=== PATIENT | female | born 1955 | race Two or more races ===

== ENCOUNTER 2019-05-13 04:37 | Inpatient (IN) | payer OTHER ==
[~2019-05-13] VITALS: Ht 160 cm; Wt 103.4 kg
[2019-05-13 06:05] VITALS: BP 171/80
--- NOTE | 2019-05-13 07:30 | NUR ---
RECEIVED PATIENT AWAKE A/O X4. BREATHING UNLABORED AND EVEN ON ROOM AIR, SATURATING ABOVE 95 %. oRIENTED TO THE UNIT, EDUCATED TO USE CALL LIGHT. sKIN CHECKED AND INTACT, PATIENT AMBULATORY. iv LINE INTACT. AWAITING FOR ADM. ORDERS
--- NOTE | 2019-05-13 07:45 | NUR ---
PATIENT CAME FROM [facility] DIRECT ADMIT AT [id number], ACCOMPANIED BY DAUGHTER.PATIENT IS A/O X4. VITALS TAKEN AND RECORDED. AFEBRILE.
[2019-05-13 07:49] VITALS: BP 171/87
[2019-05-13 08:00] VITALS: BP 171/87
[2019-05-13] MEDS ORDERED: NITROGLYCERIN 0.4 MG/TAB BOTTLE SL PRN (08:00)
[2019-05-13] MEDS ORDERED: CEFTRIAXONE 1 G in IV D5W 50 ML IV SCH ×2 (08:00→20:00)
[2019-05-13] MEDS ORDERED: FUROSEMIDE 40 MG/4 ML VIAL IV SCH (09:00)
--- NOTE | 2019-05-13 10:00 | NUR ---
PATIENT DID NOT PROVIDE HOME MEDS LIST. WILL CALL PATIENT'S PREFERRED PHARMACY
[2019-05-13] MEDS: FUROSEMIDE 40 MG/4 ML VIAL IV SCH ×3 (10:01→15:51)
[2019-05-13] MEDS: AZITHROMYCIN 250 MG TABLET PO SCH (10:01)
[2019-05-13] MEDS: ENOXAPARIN SODIUM 40 MG/0.4 ML DISP.SYRIN SQ SCH (10:49)
[2019-05-13 11:58] LABS: BASOPHILS # (AUTO) 0.1 /CMM (0.0-0.2); BASOPHILS % (AUTO) 0.7 % (0.0-2.0); EOSINOPHILS % (AUTO) 1.1 % (0.0-6.0); HEMATOCRIT 31 % (33-45); LYMPHOCYTES # (AUTO) 1.1 /CMM (0.8-4.8); LYMPHOCYTES % (AUTO) 10.4 % (20.0-44.0); MEAN CORPUSCULAR HGB CONC 33 g/dl (31.0-36.0); MEAN CORPUSCULAR VOLUME 91 fL (82-100); MONOCYTES # (AUTO) 0.8 /CMM (0.1-1.30); MONOCYTES % (AUTO) 7.1 % (2.0-12.0); NEUTROPHILS # (AUTO) 8.8 /CMM (1.8-8.9); NEUTROPHILS % (AUTO) 80.7 % (43.0-81.0); PLATELET COUNT (AUTO) 325 /CMM (150-450); RED BLOOD CELL COUNT(AUTO) 3.39 MIL/uL (4.0-5.2); WHITE BLOOD COUNT (AUTO) 10.9 K/uL (4.3-11.0)
[2019-05-13 12:10] LABS: ALBUMIN 2.1 g/dL (3.4-5.0); BILIRUBIN,TOTAL 0.2 mg/dL (0.2-1.0); CALCIUM, SERUM 8.6 mg/dL (8.5-10.1); CREATININE 1.7 mg/dL (0.6-1.3); MAGNESIUM 1.5 mg/dL (1.8-2.4); PHOSPHORUS 4.1 mg/dL (2.5-4.9); POTASSIUM 3.5 mmol/L (3.5-5.1); TOTAL PROTEIN, SERUM 6.2 g/dL (6.4-8.2)
[2019-05-13] MEDS: Magnesium 1GM/D5W 100ML PREMIX 100 ML IV SCH ×3 (15:51→19:11)
[2019-05-13 16:00] VITALS: BP 171/87
--- NOTE | 2019-05-13 16:00 | NUR ---
mrsa SWAB DONE AND SENT TO LAB
[2019-05-13] MEDS: hydrALAZINE HCL IV 20 MG VIAL IV PRN (16:46)
--- NOTE | 2019-05-13 19:14 | NUR ---
pATIENT RESTING IN BED. pATIENT A/O X4 , ON ROOM AIR TOLERATING WELL. iv MAGNESIUM RUNNING ORDERED. PATIENT AMBULATORY AND USING BATHROOM. ALL NEEDS ATTENDED. SAFETY PRECAUTIONS IN PLACE AND PATIENT USING CALL LIGHT. WILL ENDORSE TO NEXT SHIFT FOR MAIK.
[2019-05-13] MEDS ORDERED: METF1000 PO (19:51)
[2019-05-13] MEDS ORDERED: HYDR-4076 PO (19:51)
[2019-05-13] MEDS ORDERED: METO25TA6 PO (19:51)
[2019-05-13] MEDS ORDERED: LOSA100T31 PO (19:51)
[2019-05-13 20:00] VITALS: BP 178/88
[2019-05-13] MEDS ORDERED: CARVEDILOL 3.125 MG TABLET PO SCH (21:00)
[2019-05-13 21:37] LABS: APPEARANCE,URINE CLEAR (CLEAR); BILIRUBIN,URINE NEGATIVE (NEGATIVE); BLOOD, URINE TRACE-INTA Ery/uL (NEGATIVE); COLOR,URINE YELLOW (YELLOW); KETONES,URINE NEGATIVE (NEGATIVE); LEUKOCYTE ESTERASE ,URINE NEGATIVE (NEGATIVE); NITRITE, URINE NEGATIVE (NEGATIVE); PH,URINE 6.5 (5.0-8.0); PROTEIN,URINE >=300 mg/dl (NEGATIVE); UGLUCOSE 250 MG/DL mg/dL (NEGATIVE); UROBILINOGEN,URINE 0.2 EU/dL (0.2)
[2019-05-13 22:08] LABS: BACTERIA,URINE Rare /HPF (None Seen); RBC,URINE 0-2 /HPF (0-2); WBC,URINE 0-2 /HPF (0-3)
[2019-05-13 22:09] LABS: COARSE GRANULAR CASTS,URINE Few /LPF (None Seen); SQUAMOUS EPITHELIAL CELL,UR Few /HPF (None Seen)
[2019-05-13] MEDS ORDERED: IPRATROPIUM NEB FS 0.5 MG/2.5 ML AMPUL.NEB NEB PRN (22:30)
[2019-05-13] MEDS ORDERED: ALBUTEROL FS 2.5 MG/3 ML VIAL.NEB NEB PRN (22:30)
[2019-05-14] VITALS: BP 164/82
[2019-05-14 04:39] VITALS: BP 170/62
[2019-05-14] MEDS: hydrALAZINE HCL IV 20 MG VIAL IV PRN (06:19)
--- NOTE | 2019-05-14 06:39 | NUR ---
CABLE ASSEMBLER AND SWAGER NOTES AWAKE & RESPONSIVE. NOT IN ANY DISTRESS. NO SOB NOTED. DENIES ANY PAIN OR DISCOMFORT AT THIS TIME. ONE TELE SR @ 72 WITH IV-HL PATENT & INTACT. MONITORED ACCORDINGLY. CALL LIGHT WITHIN REACH. BED IN LOWEST POSITION. SR UP X 2 FOR SAFETY. WILL ENDORSE TO NEXT SHIFT.
[2019-05-14 06:44] VITALS: BP 159/83
[2019-05-14 07:22] LABS: BASOPHILS # (AUTO) 0.1 /CMM (0.0-0.2); BASOPHILS % (AUTO) 0.7 % (0.0-2.0); EOSINOPHILS % (AUTO) 2.8 % (0.0-6.0); HEMATOCRIT 29 % (33-45); HEMOGLOBIN 9.4 g/dL (11.5-14.8); LYMPHOCYTES # (AUTO) 1.1 /CMM (0.8-4.8); LYMPHOCYTES % (AUTO) 14.4 % (20.0-44.0); MEAN CORPUSCULAR HGB CONC 33 g/dl (31.0-36.0); MEAN CORPUSCULAR VOLUME 90 fL (82-100); MONOCYTES # (AUTO) 0.8 /CMM (0.1-1.30); MONOCYTES % (AUTO) 10.4 % (2.0-12.0); NEUTROPHILS # (AUTO) 5.5 /CMM (1.8-8.9); NEUTROPHILS % (AUTO) 71.7 % (43.0-81.0); PLATELET COUNT (AUTO) 294 /CMM (150-450); RED BLOOD CELL COUNT(AUTO) 3.19 MIL/uL (4.0-5.2); WHITE BLOOD COUNT (AUTO) 7.6 K/uL (4.3-11.0)
[2019-05-14 07:42] LABS: ALBUMIN 1.9 g/dL (3.4-5.0); BILIRUBIN,TOTAL 0.1 mg/dL (0.2-1.0); CALCIUM, SERUM 8.3 mg/dL (8.5-10.1); CREATININE 2.1 mg/dL (0.6-1.3); MAGNESIUM 2.2 mg/dL (1.8-2.4); PHOSPHORUS 4.9 mg/dL (2.5-4.9); POTASSIUM 3.5 mmol/L (3.5-5.1); TOTAL PROTEIN, SERUM 5.6 g/dL (6.4-8.2)
[2019-05-14 08:00] VITALS: BP 131/54
[2019-05-14] MEDS ORDERED: CARVEDILOL 3.125 MG TABLET PO SCH (09:00)
[2019-05-14] MEDS ORDERED: FUROSEMIDE 40 MG/4 ML VIAL IV SCH (09:00)
[2019-05-14] MEDS ORDERED: NIFEdipine XL (30MG) 30 MG TAB PO SCH (09:00)
[2019-05-14] MEDS: AZITHROMYCIN 250 MG TABLET PO SCH (09:02)
[2019-05-14 09:03] VITALS: BP 131/54
[2019-05-14] MEDS: ENOXAPARIN SODIUM 40 MG/0.4 ML DISP.SYRIN SQ SCH (09:12)
[2019-05-14] MEDS ORDERED: CARV3.122 PO (10:36)
[2019-05-14] MEDS ORDERED: NIFE-35 PO (10:36)
[2019-05-14] MEDS ORDERED: AZIT250T PO (10:36)
--- NOTE | 2019-05-14 12:00 | NUR ---
Patient cleared for d/c by MD. Patient awake alert and oriented x4, breathing unlabored and even on room air. All needs attended. Skin intact. Patient educated on new prescribed med and verbalized understanding. Patient received d/c packet , prescription and instructions. Patient signed D/C instructions and valuable form and all belongings with the patient. IV line removed , ID line removed . Patient safely transferred to [facility] via wheelchair accompanied by CLOTHESPIN DRIER OPERATOR and family members.
== END 2019-05-14 12:00 | disposition home or self-care (01) | DRG 194 ==
LOC: TELE 05:54 → MED 12:34 → TELE 21:34 → MED 05-14 09:30
PROVIDERS: ADMIT Registered Nurse; ATTEND Registered Nurse
DX: I13.0 Hypertensive heart and chronic kidney disease with heart failure and stage 1 through stage 4 chronic kidney disease, or unspecified chronic kidney disease (principal); J15.9 Unspecified bacterial pneumonia; N17.9 Acute kidney failure, unspecified; E11.22 Type 2 diabetes mellitus with diabetic chronic kidney disease; E11.65 Type 2 diabetes mellitus with hyperglycemia; I50.33 Acute on chronic diastolic (congestive) heart failure; N18.9 Chronic kidney disease, unspecified; E83.42 Hypomagnesemia; E78.5 Hyperlipidemia, unspecified; G89.29 Other chronic pain; M54.5 Low back pain; E44.1 Mild protein-calorie malnutrition; Z68.41 Body mass index [BMI] 40.0-44.9, adult; J44.0 Chronic obstructive pulmonary disease with (acute) lower respiratory infection; T50.2X5A Adverse effect of carbonic-anhydrase inhibitors, benzothiadiazides and other diuretics, initial encounter; E66.01 Morbid (severe) obesity due to excess calories
CPT/HCPCS: 36415; 71045-TC; 80053-TC; 81000-TC; 83735-TC; 84100-TC; 84484-TC; 85025-TC; 87081-TC; 93307-TC; G0378; J0360; J0696; J1650; J1940; J3475; J7060

== ENCOUNTER 2021-04-18 14:36 | Inpatient (IN) | payer OTHER ==
[~2021-04-18] VITALS: Ht 160 cm; Wt 110.2 kg
[~2021-04-18 14:36] MED LIST: AZIT250T PO; CARV3.122 PO; HYDR-4076 PO; LOSA100T31 PO; METF1000 PO; METO25TA6 PO; NIFE-35 PO
--- NOTE | 2021-04-18 14:54 | NUR ---
TO ER BED 7, C/O WORSENING SOB X 1 WEEK WORST THE PAST 2 DAYS. EXPOSED TO DAUGHTER WHO TESTED POSITIVE FEW DAYS AGO, AAOX3, CONNECTED TO MONITOR, AWAITING MD LAWRENCE
--- NOTE | 2021-04-18 15:12 | NUR ---
Note undone in [facility] - 04/18/21 at 1607 by ALEKSANDAR LAC #20G S/L; PATENT AND INTACT BLOOD COLLECTED AND SENT TO LAB Addendum: 04/18/21 at 1527 by BERNIE Amendment undone in [facility] - 04/18/21 at 1607 by ALEKSANDAR RIGHT HAND 20G
--- NOTE | 2021-04-18 15:15 | NUR ---
R HAND #20 S/L; PATENT AND INTACT. BLOOD COLLECTED AND SENT TO LAB
--- NOTE | 2021-04-18 15:20 | NUR ---
RT CALLED FOR BREATHING TREATMENT
[2021-04-18] MEDS ORDERED: methylPREDNISolone SOD SUCC 125 MG/2ML VIAL ONE (15:22)
--- NOTE | 2021-04-18 15:24 | NUR ---
MOVE SHEET SUBMITTED AND CALLED FOR TELE BED.
[2021-04-18] MEDS ORDERED: ALBUTEROL FS 2.5 MG/3 ML VIAL.NEB ONE (15:25)
[2021-04-18] MEDS ORDERED: IPRATROPIUM NEB FS 0.5 MG/2.5 ML AMPUL.NEB ONE (15:25)
--- NOTE | 2021-04-18 15:26 | NUR ---
RT AT BEDSIDE
[2021-04-18] MEDS ORDERED: methylPREDNISolone SOD SUCC 125 MG/2ML VIAL IV ONE (15:30)
[2021-04-18] MEDS ORDERED: ALBUTEROL FS 2.5 MG/3 ML VIAL.NEB NEB ONE (15:30)
[2021-04-18] MEDS ORDERED: IPRATROPIUM NEB FS 0.5 MG/2.5 ML AMPUL.NEB NEB ONE (15:30)
[2021-04-18 15:42] LABS: BASOPHILS % (AUTO) 0.8 % (0.0-2.0); EOSINOPHILS % (AUTO) 0.5 % (0.0-6.0); HEMATOCRIT 27 % (33-45); HEMOGLOBIN 8.4 g/dL (11.5-14.8); LYMPHOCYTES # (AUTO) 0.5 K/uL (0.8-4.8); LYMPHOCYTES % (AUTO) 7.7 % (20.0-44.0); MEAN CORPUSCULAR HGB CONC 31 g/dl (31.0-36.0); MEAN CORPUSCULAR VOLUME 94 fL (82-100); MONOCYTES # (AUTO) 0.9 K/uL (0.1-1.30); MONOCYTES % (AUTO) 13.5 % (2.0-12.0); NEUTROPHILS # (AUTO) 4.9 K/uL (1.8-8.9); NEUTROPHILS % (AUTO) 77.5 % (43.0-81.0); PLATELET COUNT (AUTO) 264 K/uL (150-450); RED BLOOD CELL COUNT(AUTO) 2.87 MIL/uL (4.0-5.2); WHITE BLOOD COUNT (AUTO) 6.4 K/uL (4.3-11.0)
[2021-04-18 15:57] LABS: CALCIUM, SERUM 8.5 mg/dL (8.5-10.1); CREATININE 3.8 mg/dL (0.6-1.3); POTASSIUM 4.3 mmol/L (3.5-5.1)
--- NOTE | 2021-04-18 16:03 | NUR ---
COVID ANTIGEN SWAB DONE AND SENT TO THE LAB
[2021-04-18 16:09] LABS: ALBUMIN 2.4 g/dL (3.4-5.0); BILIRUBIN,DIRECT 0.1 mg/dL (0.0-0.2); BILIRUBIN,TOTAL 0.2 mg/dL (0.2-1.0); TOTAL PROTEIN, SERUM 7.3 g/dL (6.4-8.2)
[2021-04-18] MEDS ORDERED: GLIP10TA11 PO (16:11)
[2021-04-18] MEDS ORDERED: ATOR20TA PO (16:11)
[2021-04-18] MEDS ORDERED: FURO40TA5 PO (16:11)
[2021-04-18] MEDS ORDERED: INSU100I26 SQ (16:22)
--- NOTE | 2021-04-18 16:31 | NUR ---
JENNIFER [phone] CALLED PT CAP TO [facility] DR. MUNIZ WILL CALL TO [employer].
--- NOTE | 2021-04-18 17:08 | NUR ---
[facility] CALLED EXTENSION SPECIALIST PAGED.
--- NOTE | 2021-04-18 17:37 | NUR ---
RT Current BIPAP order on hold per Raul Loza. No indication for BIPAP at this time. Will continue to monitor.
--- NOTE | 2021-04-18 17:42 | NUR ---
COVID POSITIVE PER LABORATORY.
--- NOTE | 2021-04-18 17:50 | NUR ---
JERMEIAS GIFFORD AT BEDSIDE FOR EVAL
--- NOTE | 2021-04-18 19:06 | NUR ---
HOLD BIPAP FOR NOW PER DR DE JESUS, PATIENT DOESN'T WANT IT AT THIS TIME
--- NOTE | 2021-04-18 19:12 | NUR ---
REPORT GIVEN TO AMELIA POWELL FOR MAIK
--- NOTE | 2021-04-18 21:28 | NUR ---
REPORT GIVEN TO SHERRY MILLER
[2021-04-18] MEDS ORDERED: ATORVASTATIN 10 MG TABLET PO SCH (22:00)
[2021-04-18] MEDS ORDERED: INSULIN GLARGINE,BASAGLAR 100 UNIT/ML INSULN.PEN SQ SCH (22:00)
--- NOTE | 2021-04-18 22:04 | NUR ---
PT TRANSFERRED TO [facility] VIA ACLS PROTOCOL. VSS
--- NOTE | 2021-04-18 22:10 | NUR ---
TELE/SHOW DESIGN SUPERVISOR NOTES RECEIVED PT FROM Rebecca.RJeffry VIA BJ TO [id number].[phone] ACCOMPANIED BY GRINDER WATCH PARTS. PT AWAKE, A/OX4, ABLE TO VERBALIZE NEEDS. PT AMBULATED TO BED AND BR WITH SLOW STEADY GAIT. SHE DENIES ANY PAIN AT THIS TIME. ON O2 @3LPM VIA NC. PT WITH SOB DUC ON EXERTION. PT STATES SHE'S BEEN GETTING MORE SHORT OF BREATH LATELY. PT CONNECTED TO TELE MONITOR AND READS S/R, HR 97. NO ACUTE DISTRESS NOTED. PT GAVE HER MED BOTTLE OF CIPRO, STATES HER PMD TOLD HER SHE HAS BRONCHITIS AND PRESCRIBED CIPRO 500MG BID TO BE TAKEN UNTIL ALL TABS TAKEN. SHE STARTED TAKING ON Wed04/16/21. MADE AWARE. PT ORIENTED TO ROOM, STAFF AND POLICIES AND SAFETY INSTRUCTIONS PROVIDED. PT VERBALIZED UNDERSTANDING. SAFETY MEASURES IN PLACE, BED IN LOWEST LOCKED POSITION, S/R UPX2, CALL LIGHT WITHIN REACH. WILL CONT TO MONITOR.
[2021-04-18] MEDS ORDERED: CIPR-262 PO (22:23)
[2021-04-18] MEDS ORDERED: DEXTROSE 50%-WATER 50 ML DISP.SYRIN IV PRN (22:30)
[2021-04-18] MEDS: CARVEDILOL 3.125 MG TABLET PO SCH (22:52)
[2021-04-18] MEDS: BLOOD SUGAR DIAGNOSTIC 1 EACH STRIP IN SCH (22:57)
[2021-04-19] MEDS: INSULIN REGULAR, HUMAN 100 UNIT/ML 3 ML VIAL SQ PRN ×4 (00:42→16:49)
--- NOTE | 2021-04-19 01:39 | NUR ---
RN NOTE CALLED PHARMACY TO CLARIFY CIPRO ORDER PLACED QD INSTEAD OF BID. SPOKE WITH KATTY, STATES THE PHARMACIST CHANGED IT TO "DAILY" DUE TO PT'S RENAL FUNCTION.
[2021-04-19] MEDS ORDERED: ACETAMINOPHEN 325 MG TABLET PO PRN ×3 (02:30)
[2021-04-19] MEDS ORDERED: ENOXAPARIN SODIUM 30 MG/0.3 ML DISP.SYRIN SQ SCH ×3 (02:30→09:00)
[2021-04-19] MEDS ORDERED: ONDANSETRON HCL/PF 4 MG/2 ML VIAL IVP PRN ×3 (02:30)
[2021-04-19] MEDS ORDERED: BUMETANIDE INJ 4 MG in IV NS 0.9% 24 ML IV ONE ×3 (02:30)
[2021-04-19] MEDS ORDERED: Z GUARD REMEDY 2 OZ OINT TP PRN ×3 (02:30)
[2021-04-19] MEDS ORDERED: hydrALAZINE HCL 50 MG TABLET PO PRN ×3 (02:30)
[2021-04-19] MEDS ORDERED: BUMETANIDE INJ 0.25 MG/ML VIAL ONE ×2 (03:22→03:25)
--- NOTE | 2021-04-19 04:01 | NUR ---
RN NOTE RECEIVED BUMEX 4MG FROM CHARGE NURSE AND ADMINISTERED ORDERED
--- NOTE | 2021-04-19 05:46 | NUR ---
RN NOTE PT STATES SHE IS ALLERGIC TO KEFLEX, NOT VERAPAMIL. ALLERGY NOTED
[2021-04-19] MEDS: BLOOD SUGAR DIAGNOSTIC 1 EACH STRIP IN SCH ×3 (06:12→16:48)
--- NOTE | 2021-04-19 06:49 | NUR ---
TELE/RN CLOSING NOTES PT RESTING IN BED, EASILY AROUSABLE TO STIMULI. SHE DENIES ANY PAIN AT THIS TIME. CONT ON O2 @2LPM VIA NC. NO RESPIRATORY DISTRESS NOTED DURING THE SHIFT. TELE MONITOR READING SR, HR 87. NO ACUTE EVENTS NOTED. SAFETY MEASURES MAINTAINED. ALL NEEDS ATTENDED TO
--- NOTE | 2021-04-19 07:30 | NUR ---
TELE/RN OPENING NOTES PT RECEIVED RESTING IN BED, EASILY AROUSABLE TO STIMULI. SHE DENIES ANY PAIN AT THIS TIME. CONT ON O2 @2LPM VIA NC. NO RESPIRATORY DISTRESS NOTED. TELE MONITOR READING SR, HR 83. NO ACUTE EVENTS NOTED. SAFETY MEASURES MAINTAINED. WILL MAIK
[2021-04-19 08:00] VITALS: BP 154/61
[2021-04-19] MEDS: glipiZIDE 10 MG TABLET PO SCH ×2 (08:19→15:47)
[2021-04-19] MEDS: FUROSEMIDE 40 MG TABLET PO SCH ×2 (08:25→16:33)
[2021-04-19] MEDS: CARVEDILOL 3.125 MG TABLET PO SCH (08:25)
[2021-04-19] MEDS: hydrALAZINE HCL 25 MG TABLET PO SCH ×2 (08:25→16:33)
[2021-04-19] MEDS ORDERED: CIPROFLOXACIN HCL 500 MG TABLET PO SCH (09:00)
[2021-04-19 09:28] LABS: BASOPHILS % (AUTO) 0.2 % (0.0-2.0); HEMATOCRIT 23 % (33-45); HEMOGLOBIN 7.6 g/dL (11.5-14.8); LYMPHOCYTES # (AUTO) 0.4 K/uL (0.8-4.8); LYMPHOCYTES % (AUTO) 6.9 % (20.0-44.0); MEAN CORPUSCULAR HGB CONC 33 g/dl (31.0-36.0); MEAN CORPUSCULAR VOLUME 94 fL (82-100); MONOCYTES # (AUTO) 0.3 K/uL (0.1-1.30); MONOCYTES % (AUTO) 5.3 % (2.0-12.0); NEUTROPHILS % (AUTO) 87.6 % (43.0-81.0); PLATELET COUNT (AUTO) 235 K/uL (150-450); WHITE BLOOD COUNT (AUTO) 5.7 K/uL (4.3-11.0)
[2021-04-19] MEDS ORDERED: HYDROCODONE BIT/HOMATROPINE 5 ML UDC PO PRN (10:30)
--- NOTE | 2021-04-19 10:35 | NUR ---
RN NOTE PT COMPLAIN OF SEVER COUGH, HYCODAN PROVIDED, REPORT TO CHET CHARGE NURSE AND VERIFIED BY PHARMACY.
[2021-04-19] MEDS: methylPREDNISolone SOD SUCC 125 MG/2ML VIAL IV SCH ×2 (10:43→16:32)
[2021-04-19 12:00] VITALS: BP 158/75
[2021-04-19 12:14] LABS: ABG BASE EXCESS -9.8 mmol/L; ABG OXYGEN SATURATION 97.5 % (92.0-98.5); ABG PCO2 37.9 mmHg (35.0-45.0); ABG PH 7.256 (7.350-7.450); ABG PO2 109.1 mmHg (75.0-100.0); AaDO2 103.6 mmHg; COHb 0.1 % (0.5-1.5); MetHb 0.3 % (0.0-1.5); O2Hb 97.1 % (94.0-97.0); SITE, ABG Left Femoral; VENT MODE, BG 4 L NC
[2021-04-19] MEDS: IPRATROPIUM/ALBUTEROL INHALER IH SCH ×2 (12:20→17:04)
[2021-04-19 14:31] LABS: THYROID STIMULATING HORMONE 0.726 uIU/mL (0.358-3.74)
[2021-04-19 16:00] VITALS: BP 170/72
[2021-04-19 16:33] VITALS: BP 170/72
--- NOTE | 2021-04-19 17:30 | NUR ---
RN NOTE FOLLOW UP FOR PENDING LAB RESULT, STATED LAB ARE NOT READY BECAUSE THEY ARE RUNNING BEHIND. BMP LAB RESULT STILL PENDING AT THIS TIME.
[2021-04-19] MEDS ORDERED: HYDR-4076 PO (18:11)
--- NOTE | 2021-04-19 18:19 | NUR ---
PATIENT SIGNED AGAINST MEDICAL ADVISED,EXPLAINED RISK OF LEAVING HOSPITAL INCLUDING STILL INSISTED THAT HER DAUGHTER WILL PICK HER UP HOME.INSTRUCTED TO COMEBACK TO ER IF SHORTNESS OF BREATH /SYMPTOMS PERSIST.HOME QUARANTINE INSTRUCTIONS PROVIDED.
--- NOTE | 2021-04-19 19:01 | NUR ---
RN NOTE patient alert and oriented x4, want to leave against medical advise due to Edwina night to spend the time with her family, explained the risk factors to the patient and instruct the patient to be on quarantine per CDC guidelines. MD made aware, also instruct the patient to come back to emergency department for any concern, short of breath, or any distress. Unique Id: [id number]
--- NOTE | 2021-04-19 19:10 | NUR ---
RN NOTES RECEIVED REPORT FROM MORNING RN. PATIENT SITTING AT THE EDGE OF THE BED A/OX 4. ON NASAL CANULA AT 3LPM TOLERATING WELL SATING 98%. PATIENT IS COVID 19 RAPID +. PATIENT IS FOR D/C AMA. PAPER WORKS SIGNS BY THE PATIENT. RISK AND BENEFITS EXPLAINED STILL WANTED TO GO HOME. ALL BELONGINGS ACCOUNTED TO THE PATIENT AND SIGNED. ALL NEEDS ATTENDED.
--- NOTE | 2021-04-19 19:45 | NUR ---
RN NOTES PATIENT LEFT. WHEEL PATIENT OUT VIA WHEELCHAIR WITH MASK ON AT ALL TIMES. DAUGHTER IS OUTSIDE AT THE CAR. PATIENT REMAINS STABLE.
[2021-04-19 20:54] LABS: CREATININE 4.3 mg/dL (0.6-1.3); POTASSIUM 4.9 mmol/L (3.5-5.1)
[2021-04-19 21:06] LABS: MAGNESIUM 2.3 mg/dL (1.8-2.4); PHOSPHORUS 6.7 mg/dL (2.5-4.9)
== END 2021-04-19 20:18 | disposition left against medical advice (07) | DRG 137 ==
LOC: ER 14:51 → TELE1 21:07
PROVIDERS: ADMIT Nurse Practitioner Acute Care; ATTEND Nurse Practitioner Acute Care
DX: U07.1 COVID-19 (principal); J96.01 Acute respiratory failure with hypoxia; J12.82 Pneumonia due to coronavirus disease 2019; I50.33 Acute on chronic diastolic (congestive) heart failure; I21.A1 Myocardial infarction type 2; D63.1 Anemia in chronic kidney disease; E87.2 Acidosis; E66.2 Morbid (severe) obesity with alveolar hypoventilation; I13.0 Hypertensive heart and chronic kidney disease with heart failure and stage 1 through stage 4 chronic kidney disease, or unspecified chronic kidney disease; J44.0 Chronic obstructive pulmonary disease with (acute) lower respiratory infection; J44.1 Chronic obstructive pulmonary disease with (acute) exacerbation; N18.9 Chronic kidney disease, unspecified; Z88.8 Allergy status to other drugs, medicaments and biological substances; Z79.4 Long term (current) use of insulin; Z79.899 Other long term (current) drug therapy; E66.9 Obesity, unspecified; E11.22 Type 2 diabetes mellitus with diabetic chronic kidney disease; E78.5 Hyperlipidemia, unspecified; J98.11 Atelectasis; Z68.41 Body mass index [BMI] 40.0-44.9, adult; K21.9 Gastro-esophageal reflux disease without esophagitis; N17.9 Acute kidney failure, unspecified; Z87.891 Personal history of nicotine dependence
CPT/HCPCS: 36415; 36600; 71045-TC; 80048-TC; 80061-TC; 80076-TC; 82803-TC; 83540-TC; 83735-TC; 83880; 84100-TC; 84443-TC; 84484-TC; 85025-TC; 85378-TC; 86140-TC; 87081-TC; 93307-TC; 94799-TC; C9803; G0378; J1650; J1815; J2930; J3490; J7030; J7050

== ENCOUNTER 2021-11-25 23:21 | Emergency (ER) | payer MEDICAID, OTHER ==
[~2021-11-25] VITALS: Ht 160 cm; Wt 112.0 kg
[~2021-11-25 23:21] MED LIST changes: +ATOR20TA PO; -AZIT250T PO; +CIPR-262 PO; +FURO40TA5 PO; +GLIP10TA11 PO; +INSU100I26 SQ; -LOSA100T31 PO; -METF1000 PO; -METO25TA6 PO; -NIFE-35 PO
--- NOTE | 2021-11-25 23:40 | NUR ---
PATIENT BIBRA 89 FROM HOME FOR C/O WEAKNESS AND DIZZINESS. PATIENT IS A/O, RR EVEN AND UNLABORED, NO SOB NOTED. PATIENT TAKEN TO ER BED 04. PATIENT CONNECTED TO CARDIAC AND POX MONITORS.
--- NOTE | 2021-11-25 23:45 | NUR ---
L HAND #20G S/L ESTABLISHED PLANT CONTROL AIDE. BLOOD AND COVID ANTIGEN SWAB COLLECTED AND SENT TO LAB
--- NOTE | 2021-11-25 23:52 | NUR ---
URINE COLLECTED AND SENT TO LAB
--- NOTE | 2021-11-25 23:52 | NUR ---
NAVI DONE AND SENT TO LAB
--- NOTE | 2021-11-25 23:52 | NUR ---
URINE DONE AND SENT TO LAB
[2021-11-25 23:54] LABS: BASOPHILS # (AUTO) 0.1 K/uL (0.0-0.2); BASOPHILS % (AUTO) 0.6 % (0.0-2.0); EOSINOPHILS % (AUTO) 7.2 % (0.0-6.0); HEMATOCRIT 26 % (33-45); HEMOGLOBIN 8.8 g/dL (11.5-14.8); LYMPHOCYTES # (AUTO) 0.9 K/uL (0.8-4.8); LYMPHOCYTES % (AUTO) 10.6 % (20.0-44.0); MEAN CORPUSCULAR HGB CONC 33 g/dl (31.0-36.0); MEAN CORPUSCULAR VOLUME 89 fL (82-100); MONOCYTES # (AUTO) 0.7 K/uL (0.1-1.30); MONOCYTES % (AUTO) 8.2 % (2.0-12.0); NEUTROPHILS # (AUTO) 6.4 K/uL (1.8-8.9); NEUTROPHILS % (AUTO) 73.4 % (43.0-81.0); PLATELET COUNT (AUTO) 239 K/uL (150-450); RED BLOOD CELL COUNT(AUTO) 2.96 MIL/uL (4.0-5.2); WHITE BLOOD COUNT (AUTO) 8.7 K/uL (4.3-11.0)
[2021-11-26 00:07] LABS: CARBON DIOXIDE 21 mmol/L (21-32); CHLORIDE 107 mmol/L (98-107); CREATININE 5.8 mg/dL (0.6-1.3); GLUCOSE 90 mg/dL (74-106); SODIUM SERUM 138 mmol/L (136-145); UREA NITROGEN, BLOOD 79 mg/dL (7-18)
[2021-11-26 00:12] LABS: ALANINE AMINOTRANSFERASE 16 U/L (12-78); ALBUMIN 2.4 g/dL (3.4-5.0); ALKALINE PHOSPHATASE 117 U/L (46-116); ASPARTATE AMINOTRANSFERASE 11 U/L (15-37); BILIRUBIN,TOTAL 0.2 mg/dL (0.2-1.0); TOTAL PROTEIN, SERUM 6.6 g/dL (6.4-8.2)
[2021-11-26] MEDS ORDERED: ASPIRIN 325 MG TABLET PO ONE (00:30)
[2021-11-26] MEDS ORDERED: ASPIRIN 325 MG TABLET ONE (00:35)
[2021-11-26 00:56] LABS: BILIRUBIN,URINE NEGATIVE (NEGATIVE); COLOR,URINE YELLOW (YELLOW); LEUKOCYTE ESTERASE ,URINE NEGATIVE (NEGATIVE); NITRITE, URINE NEGATIVE (NEGATIVE); PROTEIN,URINE >=300 mg/dl (NEGATIVE); UGLUCOSE 250 MG/DL mg/dL (NEGATIVE); UROBILINOGEN,URINE 0.2 EU/dL (0.2)
--- NOTE | 2021-11-26 01:35 | NUR ---
GYPSUM BLOCK SETTER AT PT'S BEDSIDE
[2021-11-26 01:44] LABS: BACTERIA,URINE Rare /HPF (None Seen); SQUAMOUS EPITHELIAL CELL,UR Few /HPF (None Seen); WBC,URINE 0-2 /HPF (0-3)
[2021-11-26 01:53] LABS: CLINITEST,URINE TRACE
--- NOTE | 2021-11-26 03:08 | NUR ---
REC'D A CALL FROM ALMA SON AT [facility]: INSURANCE IS WORKING ON PLACING THE PATIENT AT A NURSING FACILITY OR TRANSFERRING HER TO [facility]. SPOKE TO THE PATIENT AND MADE HER AWARE OF THE SITUATION. PATIENT REFUSED TO GO TO EITHER [facility] OR A CUSTODIAL. SHE STATED SHE IS FEELING BETTER AT THIS TIME. SHE WILL EITHER STAY AT [facility] IF IT'S AUTHORIZED BY INSURANCE OR WILL LEAVE AMA AND GO HOME HOWEVER HER FRIEND CAN PICK HER UP IN THE MORNING. HUY MARQUEZ, AND ER DOCTOR MADE AWARE. ALMA'S PHONE NUMBER: [phone]
--- NOTE | 2021-11-26 04:08 | NUR ---
Patient does not wish to proceed with medical care recommended by Dr. Olivo. Patient given information related to possible complications, up to and including , which could occur as a result of leaving the hospital at this time. Patient verbalizes understanding of risks involved due to leaving against medical advice. Patient has signed AMA form. Spoke to Kg from [facility] transportation, [facility] will pick up and delivery driver pt with ETA of 1 hour.
--- NOTE | 2021-11-26 05:12 | NUR ---
REPORT GIVEN TO [facility] FOR PT TO LEAVE AMA. ALL BELONGINGS WITH PT.
[2021-11-26 05:13] VITALS: BP 147/73
--- NOTE | 2021-11-26 05:17 | NUR ---
PT AMA VIA [facility] UNIT 355. IV removed. Catheter intact and site benign. Pressure and 4x4 applied to site. No bleeding noted.
== END 2021-11-26 05:17 | disposition left against medical advice (07) ==
LOC: ER 23:22
DX: R53.1 Weakness (principal); E11.22 Type 2 diabetes mellitus with diabetic chronic kidney disease; I13.2 Hypertensive heart and chronic kidney disease with heart failure and with stage 5 chronic kidney disease, or end stage renal disease; I50.9 Heart failure, unspecified; N18.6 End stage renal disease; Z79.4 Long term (current) use of insulin; Z79.84 Long term (current) use of oral hypoglycemic drugs; D63.8 Anemia in other chronic diseases classified elsewhere; R77.8 Other specified abnormalities of plasma proteins; Z20.822 Contact with and (suspected) exposure to COVID-19; Z53.29 Procedure and treatment not carried out because of patient's decision for other reasons; J44.9 Chronic obstructive pulmonary disease, unspecified; Z86.16 Personal history of COVID-19; K21.9 Gastro-esophageal reflux disease without esophagitis; Z79.899 Other long term (current) drug therapy; E66.01 Morbid (severe) obesity due to excess calories; Z68.41 Body mass index [BMI] 40.0-44.9, adult
CPT/HCPCS: 99285; 70450; 71045; 87426; 93005; 85025; 80048; 80076; 81001; 36415 ×2; 84484 ×2; 85730; 82962; C9803